=== PATIENT | female | born 1995 | race American Indian/Alaskan Native ===

== ENCOUNTER 2016-08-28 07:42 | Inpatient (IN) | payer OTHER, MEDICAID ==
[2016-08-28] MEDS ORDERED: CERVIDIL VG ONE (09:16)
[2016-08-28 09:42] LABS: Hematocrit 37.6 % (30.3-42.9); Mean Corpuscular HGB Conc 32 % (30-34); Mean Corpuscular Hemoglobin 27 pg (28-32); Mean Corpuscular Volume 83 fl (79-97); Platelet Count 136 K/mm3 (140-440); Red Blood Count 4.53 M/mm3 (3.65-5.03); Red Cell Distribution Width 17.2 % (13.2-15.2); White Blood Count 6.3 K/mm3 (4.5-11.0)
[2016-08-28] MEDS: LACTATED RINGERS 1,000 ML IV SCH ×3 (10:35→22:58)
--- NOTE | 2016-08-28 10:50 | History and Physical Report ---
History of Present Illness Date of examination: 08/28/16 Date of admission: 08/28/16 07:42 Chief complaint: Schedule induction of labor History of present illness: 21yo Fe , ARIANNE 08/25/2016 (LMP), 40 weeks 3days, B positve, Rubella Immume, GBS Negative presents for scheduled induction of labor for postdates. 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 Pt suffered with severe Ptyalism at the beginning of . 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 Anemia treated with Ferrous Sulfate. Received Boostrix 06/23/16. Past History Past Medical History: no pertinent history Past Surgical History: other (Oral Surgery) [employer] History: chlamydia (2013), gonorrhea (2013), herpes (2015, on prophylaxis), trichomonas (2013). denies: abnormal PAP smear, hepatitis B, hepatitis C, HIV, syphilis Family/Genetic History: diabetes, hypertension Social history: no significant social history, lives with family, full code. denies: smoking, alcohol abuse, prescription drug abuse, IV drug use - Obstetrical History Expected Date of Delivery: 08/25/16 Actual Gestation: 40 Week(s) 3 Day(s) : 1 Para: 0 Hx # Term Pregnancies: 0 Number of Pregnancies: 0 Spontaneous Abortions: 0 Induced : 0 Number of Living Children: 0 Medications and Allergies Allergies Allergy/AdvReac Type Severity Reaction Status Date / Time apple [Apple] Allergy Itching Verified 06/12/13 20:18 bee pollen [Bee Pollen] Allergy Unknown Verified 06/12/13 20:18 Home Medications Medication Instructions Recorded Confirmed Last Taken Type Acetamin/Codeine 120-12Mg/5 ml 5 ml PO TID PRN #30 ml 06/23/15 Unknown Rx [Tylenol/Codeine] Active Meds: Active Medications Ephedrine Sulfate (Ephedrine Sulfate) 10 mg IV Q2M PRN PRN Reason: Hypotension Stop: 08/28/16 15:00 Fentanyl (Sublimaze) 100 mcg IV Q2H PRN PRN Reason: Labor Pain Lactated Ringer's (Lactated Ringers) 1,000 mls @ 125 mls/hr IV DIRECT PALMER Last Admin: 08/28/16 10:35 Dose: 125 mls/hr Oxytocin/Sodium Chloride (Pitocin/Ns 20 Unit/1000ml Drip) 1,000 mls @ 125 mls/ hr IV DIRECT PALMER Mineral Oil (Mineral Oil) 30 ml PO QHS PRN PRN Reason: Constipation Naloxone HCl (Narcan 0.4 Mg/1 Ml) 0.1 mg IV Q2MIN PRN PRN Reason: Res Rate </= 8 or 02 SAT < 92% Ondansetron HCl (Zofran) 4 mg IV Q8H PRN PRN Reason: Nausea And Vomiting Promethazine HCl (Phenergan) 25 mg PO Q6H PRN PRN Reason: Nausea And Vomiting Terbutaline Sulfate (Brethine) 0.25 mg SUB-Q ONCE PRN PRN Reason: Hyperstimulation/Hypertonicity Stop: 08/28/16 11:01 Terbutaline Sulfate (Brethine) 0.25 mg IVP ONCE PRN PRN Reason: Hyperstimulation/Hypertonicity Stop: 08/28/16 11:01 Review of Systems Eyes: normal appearance Cardiovascular: no chest pain, no shortness of breath Respiratory: no shortness of breath Gastrointestinal: no nausea, no vomiting, no diarrhea, no constipation Genitourinary: normal appearance, no vaginal bleeding, no leakage of fluid, no genital sores, no contractions Integumentary: no rash, no sores, no lesions - Vital Signs Vital signs: Vital Signs Pulse Pulse Ox 72 99 08/28/16 08:20 08/28/16 08:20 Temp Pulse Resp BP Pulse Ox 97.6 F 68 14 110/61 98 08/28/16 08:21 08/28/16 10:25 08/28/16 08:21 08/28/16 08:27 08/28/16 10:25 - Physical Exam Breasts: Positive: normal Cardiovascular: Regular rate Lungs: Positive: Normal air movement Abdomen: Positive: normal appearance Genitourinary (Female): Positive: normal external genitalia, normal perenium Vulva: both: normal Vagina: Positive: normal moisture Uterus: Positive: enlarged (Gravid) Anus/Rectum: Positive: normal perianal skin Extremities: Positive: normal Deep Tendon Reflex Grade: Normal +2 - Obstetrical FHR: category 1 Uterine Contraction Monitor Mode: External Cervical Dilatation: 0 (Per admitting RN) Cervical Effacement Percentage: 50 station: -3 Uterine Contraction Pattern: Absent Uterine Tone Measurement Phase: Resting Results Result Diagrams: 08/28/16 08:40 Abnormal lab results 08/28/16 Range/Units 08:40 MCH 27 L (28-32) pg RDW 17.2 H (13.2-15.2) % Plt Count 136 L (140-440) K/mm3 All other labs normal. Assessment and Plan A: , Term IUP at 40w3d Scheduled IOL GBS Negative HSV2 IgG positive, on prophylaxis Category 1 tracing P: Admit to L&D Routine labor orders Cervidil induction
[2016-08-28] MEDS ORDERED: MINERAL OIL PO PRN (11:00)
[2016-08-28] MEDS ORDERED: BRETHINE IVP PRN (11:00)
[2016-08-28] MEDS ORDERED: NARCAN 0.4 MG/1 ML IV PRN (11:00)
[2016-08-28] MEDS ORDERED: PITOCin/NS 20 UNIT/1000ML DRIP 1,000 ML IV SCH (11:00)
[2016-08-28] MEDS ORDERED: SUBLIMAZE IV PRN (11:00)
[2016-08-28] MEDS ORDERED: BRETHINE SUB-Q PRN (11:00)
[2016-08-28] MEDS ORDERED: ZOFRAN IV PRN (11:00)
[2016-08-28] MEDS ORDERED: ePHEDrine SULFATE IV PRN ×2 (11:00→22:45)
[2016-08-28] MEDS ORDERED: PHENERGAN PO PRN (11:00)
[2016-08-28] MEDS ORDERED: ePHEDrine SULFATE ONE (22:18)
[2016-08-28] MEDS ORDERED: NARCAN 2 MG/2 ML IV PRN (22:45)
--- NOTE | 2016-08-28 22:45 | Anesthesia Consultation ---
Anesthesia Consult and Med Hx Date of service: 08/28/16 - Airway Anesthetic Teeth Evaluation: Good ROM Head & Neck: Adequate Mental/Hyoid Distance: Adequate Mallampati Class: Class II Intubation Access Assessment: Good - Pulmonary Exam CTA: Yes - Cardiac Exam Cardiac Exam: No Murmur - Pre-Operative Health Status ASA Pre-Surgery Classification: ASA2 Proposed Anesthetic Plan: Epidural - Pulmonary Hx Asthma: No COPD: No Hx Pneumonia: No - Cardiovascular System Hx Hypertension: No - Central Nervous System Hx Seizures: No Hx Psychiatric Problems: No - Endocrine Hx Renal Disease: No Hx End Stage Renal Disease: No Hx Hypothyroidism: No Hx Hyperthyroidism: No - Hematic Hx Anemia: No Hx Sickle Cell Disease: No - Other Systems Hx Alcohol Use: No
[2016-08-28] MEDS ORDERED: fentaNYL-BUPIV 2 MCG/ML-0.125% 100 ML EPIDURAL SCH (23:00)
[2016-08-28] MEDS: PITOCin/NS 30 UNIT/500ML 500 ML IV SCH (23:15)
[2016-08-29] MEDS: PITOCin/NS 30 UNIT/500ML 500 ML IV SCH (00:30)
--- NOTE | 2016-08-29 02:53 | Procedure Note ---
OB Delivery Note - Delivery Date of Delivery: 08/29/16 Surgeon: MARBIN REN Estimated blood loss: other (150cc) - Vaginal Delivery presentation: vertex Delivery position: OA Intrapartum events: none Delivery induction: cervidil Delivery augmentation: pitocin Delivery monitor: external FHT, external uterine Route of delivery: Delivery placenta: spontaneous Delivery cord: nuchal cord, 3 umbilical vessels Episiotomy: midline Delivery laceration: 1st degree (vaginal) Delivery repair: vicryl Anesthesia: epidural - A at 1 minute: 8 at 5 minutes: 9 Infant Gender: Male (3307gms)
[2016-08-29] MEDS ORDERED: LANSINOH TP PRN (02:54)
[2016-08-29] MEDS ORDERED: TYLENOL PO PRN (02:54)
[2016-08-29] MEDS ORDERED: PHENERGAN PR PRN (02:54)
[2016-08-29] MEDS ORDERED: PHENERGAN PO PRN (02:54)
[2016-08-29] MEDS ORDERED: ZOFRAN IV PRN (02:54)
[2016-08-29] MEDS ORDERED: MILK OF MAGNESIA PO PRN (02:54)
[2016-08-29] MEDS ORDERED: DULCOLAX PR PRN (02:54)
[2016-08-29] MEDS ORDERED: DERMOPLAST TP PRN (02:54)
[2016-08-29] MEDS ORDERED: TUCKS PAD TP PRN (02:54)
[2016-08-29] MEDS ORDERED: BENADRYL PO PRN (02:54)
[2016-08-29] MEDS ORDERED: SODIUM CHLORIDE FLUSH SYRINGE 10 ML IV NR (03:00)
[2016-08-29] MEDS ORDERED: PITOCin/NS 20 UNIT/1000ML DRIP 1,000 ML IV SCH (03:00)
[2016-08-29] MEDS ORDERED: SENOKOT S PO SCH (06:00)
[2016-08-29] MEDS: NORCO 5/325 PO PRN ×2 (08:40→20:22)
[2016-08-29] MEDS: FEOSOL PO SCH ×2 (09:23→22:00)
[2016-08-29] MEDS: PRENATAL VITAMIN PO SCH (09:23)
[2016-08-29] MEDS: COLACE PO SCH ×2 (09:23→22:00)
[2016-08-29] MEDS: MOTRIN PO SCH ×3 (13:30→23:38)
[2016-08-29 14:10] LABS: Hematocrit 36.4 % (30.3-42.9); Hemoglobin 11.9 gm/dl (10.1-14.3)
[2016-08-30] MEDS: MOTRIN PO SCH ×2 (05:50→11:53)
[2016-08-30] MEDS ORDERED: BOOSTRIX IM ONE (06:00)
[2016-08-30] MEDS ORDERED: M-M-R II VACCINE SUB-Q ONE (06:00)
[2016-08-30] MEDS: PRENATAL VITAMIN PO SCH (11:54)
[2016-08-30] MEDS: FEOSOL PO SCH (11:54)
[2016-08-30] MEDS ORDERED: DEPO-PROVERA (CONTRACEPTION) IM ONE (13:58)
--- NOTE | 2016-08-30 14:00 | Progress Note ---
Assessment and Plan A: PP Day #1 Stable P: Follow Routine Orders D/C Home today per patient request Depo Provera prior to discharge RTO in One Week for Male Circumcision RTO in 6 Weeks for Exam Subjective - Subjective Date of service: 08/30/16 Patient reports: appetite normal, voiding normally, pain well controlled, flatus , ambulating normally : doing well Objective - Vital Signs Latest vital signs: Vital Signs Temp Pulse Resp BP 08/30/16 08:42 98.4 F 70 18 106/60 08/29/16 23:50 98.3 F 68 20 107/57 08/29/16 16:15 98.4 F 84 20 97/58 Intake and Output 08/29/16 08/30/16 08/30/16 22:59 06:59 14:59 Intake Total 360 480 120 Balance 360 480 120 Intake: Oral 360 240 120 Intake, Free Water 240 Other: Total, Intake Amount 360 240 120 # Voids Void 1 1 - Exam Breasts: Present: normal Cardiovascular: Present: Regular rate Lungs: Present: Clear to auscultation, Normal air movement Abdomen: Present: normal appearance, soft, normal bowel sounds Uterus: Present: normal, firm, fundal height below umbilicus Extremities: Present: normal
--- NOTE | 2016-08-30 14:03 | Discharge Summary ---
Providers - Providers Date of Admission: 08/28/16 07:42 Date of discharge: 08/30/16 Attending physician: MARBIN HERNÁNDEZ MD Primary care physician: MARBIN HERNÁNDEZ MD Hospitalization Reason for admission: induction of labor Delivery: Episiotomy: none Laceration: 1st degree Other procedures: none complications: none Discharge diagnosis: IUP at term delivered [place] baby: male Condition at discharge: Good Disposition: DISCHARGED TO HOME OR SELFCARE Plan - Provider Discharge Summary Activity: routine, no sex for 6 weeks, no heavy lifting 4 weeks, no strenuous exercise Diet: routine Instructions: routine Additional instructions: [] Smoking cessation referral if applicable(refer to patient education folder for contact #) [] Refer to [facility] Booklet Call your doctor immediately for: * Fever > 100.5 * Heavy vaginal bleeding ( >1 pad per hour) * Severe persistent headache * Shortness of breath * Reddened, hot, painful area to leg or breast * Drainage or odor from incision. * Keep incision clean and dry at all times and follow doctor's instructions regarding bathing/showering - Follow up plan Follow up: SURENDRA ENGLE CNM [Advanced Practice Nurse] - 7 Days
[2016-08-30 17:08] VITALS: BP 110/66
== END 2016-08-30 16:30 | disposition home or self-care (01) | DRG 775 ==
LOC: LD 07:42 → OB 08-29 04:30
PROVIDERS: ADMIT Obstetrics & Gynecology; ATTEND Obstetrics & Gynecology
PROC: 10E0XZZ Delivery of Products of Conception, External Approach (ICD-10-PCS; principal; 2016-08-29)
PROC: 0W8NXZZ Division of Female Perineum, External Approach (ICD-10-PCS; 2016-08-29)
PROC: 3E0S3CZ (ICD-10-PCS; 2016-08-29)
PROC: 00HU33Z Insertion of Infusion Device into Spinal Canal, Percutaneous Approach (ICD-10-PCS; 2016-08-29)
PROC: 3E0P7GC Introduction of Other Therapeutic Substance into Female Reproductive, Via Natural or Artificial Opening (ICD-10-PCS; 2016-08-29)
PROC: 0WQNXZZ Repair Female Perineum, External Approach (ICD-10-PCS; 2016-08-29)
DX: O48.0 Post-term pregnancy (principal); O69.81X0 Labor and delivery complicated by cord around neck, without compression, not applicable or unspecified; O70.0 First degree perineal laceration during delivery; Z3A.40 40 weeks gestation of pregnancy; Z37.0 Single live birth; Z22.4 Carrier of infections with a predominantly sexual mode of transmission; Z86.19 Personal history of other infectious and parasitic diseases
CPT/HCPCS: 36415; 59200; 85014; 85018; 85027; 86850; 86900; 86901; 99211; G0463; J1050; J2590; J7120

== ENCOUNTER 2017-07-15 10:35 | Emergency (ER) | payer MEDICAID, OTHER ==
--- NOTE | 2017-07-15 12:31 | Emergency Department Report ---
Chief Complaint: Fever Stated Complaint: FEVER, AND MIGRAINE Time Seen by Provider: 07/15/17 11:57 - HPI History of Present Illness: Patient is a 16-cpsx-ajh-Mauritian female who is presenting with a fever. Patient is she is had a fever with generalized headache for the past 5 days patient states that there is headache in the frontal region as well as the base of the neck denies inability to move her neck. Patient has had some mild nausea. She denies sinus tenderness however she states she did have a nosebleed several days ago. Patient denies nausea vomiting at this time diarrhea cough sore throat - ROS Review of Systems: Review of systems negative except for those in the - Exam Vital Signs: Vital Signs 07/15/17 10:45 Temperature 101.9 F H Pulse Rate 108 H Respiratory 20 Rate Blood Pressure 118/74 O2 Sat by Pulse 99 Oximetry Physical Exam: Patient is able to sit up on her own and is able to look up and look down and move her neck with full range of motion AND otherwise patient has a normal exam MSE screening note: Focused history and physical exam performed. Due to findings the following was ordered: ED Disposition for MSE Condition: Stable Referrals: PRIMARY CARE [Primary Care Provider] - 3-5 Days
[2017-07-15] MEDS ORDERED: NACL 0.9% 1000 ML 1,000 ML IV ONE (12:35)
[2017-07-15] MEDS ORDERED: TYLENOL PO ONE (12:35)
[2017-07-15 13:26] LABS: Basophils % (Auto) 0.3 % (0.0-1.8); Hematocrit 44.4 % (30.3-42.9); Hemoglobin 14.5 gm/dl (10.1-14.3); Mean Corpuscular HGB Conc 33 % (30-34); Mean Corpuscular Hemoglobin 27 pg (28-32); Mean Corpuscular Volume 83 fl (79-97); Platelet Count 222 K/mm3 (140-440); Red Blood Count 5.38 M/mm3 (3.65-5.03); Red Cell Distribution Width 13.9 % (13.2-15.2); White Blood Count 10.8 K/mm3 (4.5-11.0)
--- NOTE | 2017-07-15 13:56 | Emergency Department Report ---
HPI - General Chief Complaint: Fever Time Seen by Provider: 07/15/17 11:57 - HPI HPI: Patient is a 33-pkuv-gwi-Palauan female who is presenting with a fever. Patient is she is had a fever with generalized headache x 5 days Patient states headache is localized to her frontal region and the base of the neck. Patient has no inability to move her neck. She denies any trauma to the head. She states she did have a nosebleed several days ago. Patient denies nausea/ vomiting /chest pain/shortness of breath/abdominal pain/ diarrhea/ cough /sore throat/vaginal discharge, dysuria ED Past Medical Hx - Past Medical History Hx Hypertension: No Hx Congestive Heart Failure: No Hx Diabetes: No Hx Deep Vein Thrombosis: No Hx Renal Disease: No Hx Sickle Cell Disease: No Hx Seizures: No Hx Asthma: No Hx COPD: No Hx HIV: No Additional medical history: eczema - Surgical History Past Surgical History?: No Hx Coronary Stent: No Hx Open Heart Surgery: No Hx Pacemaker: No Hx Internal Defibrillator: No Hx Cholecystectomy: No Hx Appendectomy: No Hx Breast Surgery: No - Social History Smoking Status: Never Smoker Substance Use Type: None - Medications Home Medications: Home Medications Medication Instructions Recorded Confirmed Last Taken Type Acetamin/Codeine 120-12Mg/5 ml 5 ml PO TID PRN #30 ml 06/23/15 Unknown Rx [Tylenol/Codeine] Ibuprofen [Motrin] 800 mg PO Q8HR PRN #30 tablet 07/15/17 Unknown Rx Levofloxacin [Levaquin TAB] 500 mg PO QDAY #7 tablet 07/15/17 Unknown Rx ED Review of Systems ROS: Stated complaint: FEVER, AND MIGRAINE Other details as noted in HPI Constitutional: denies: chills, fever Eyes: denies: eye pain, eye discharge, vision change ENT: denies: ear pain, throat pain Respiratory: denies: cough, shortness of breath, wheezing Cardiovascular: denies: chest pain, palpitations Endocrine: no symptoms reported Gastrointestinal: denies: abdominal pain, nausea, diarrhea Genitourinary: denies: urgency, dysuria, discharge Musculoskeletal: denies: back pain, joint swelling, arthralgia Skin: denies: rash, lesions Neurological: denies: headache, weakness, paresthesias Psychiatric: denies: anxiety, depression Hematological/Lymphatic: denies: easy bleeding, easy bruising Physical Exam - Physical Exam Vital Signs: Vital Signs 07/15/17 10:45 Temperature 101.9 F H Pulse Rate 108 H Respiratory 20 Rate Blood Pressure 118/74 O2 Sat by Pulse 99 Oximetry Physical Exam: GENERAL: Alert and oriented x3, no apparent distress, Normal Gait, atraumatic. HEAD: Head is normocephalic and a-traumatic. EYES: Extra ocular muscles are intact. Pupils are equal, round, and reactive to light and accommodation. EARS: symetrical, atraumatic, non tender, ear canal clear and moderate cerumen, tympanic membrance non inflamed. gross auditory nml bilaterally. NOSE: Nose symetrical, Nontender,Nares appeared normal. MOUTH:Mouth is well hydrated and without lesions. Tonsils nonerythematous or swollen, NECK: Supple. Non edematous, No lymphadenopathy or thyromegaly. LUNGS: Symetrical with respiration, No wheezing, no rales or crackles, CTAB. HEART: S1, S2 present, regular rate and rhythm without murmur, no rubs, no gallops. Non tender to palpation ABDOMEN: No organomegaly was noted,Positive bowel sounds, soft, and non- distended. . Nontender to palpation on all Quadrants, NO CVA tenderness. BACK: Full range of motion, no spinal tenderness, nontender to palpation. SKIN: Warm and dry, No lesions, No ulceration or induration present. ED Course Vital Signs 07/15/17 10:45 Temperature 101.9 F H Pulse Rate 108 H Respiratory 20 Rate Blood Pressure 118/74 O2 Sat by Pulse 99 Oximetry ED Medical Decision Making - Lab Data Result diagrams: 07/15/17 Unknown 07/15/17 Unknown Laboratory Last Values WBC 10.8 K/mm3 (4.5-11.0) 07/15/17 Unknown RBC 5.38 M/mm3 (3.65-5.03) H 07/15/17 Unknown Hgb 14.5 gm/dl (10.1-14.3) H 07/15/17 Unknown Hct 44.4 % (30.3-42.9) H 07/15/17 Unknown MCV 83 fl (79-97) 07/15/17 Unknown MCH 27 pg (28-32) L 07/15/17 Unknown MCHC 33 % (30-34) 07/15/17 Unknown RDW 13.9 % (13.2-15.2) 07/15/17 Unknown Plt Count 222 K/mm3 (140-440) 07/15/17 Unknown Lymph % (Auto) 12.7 % (13.4-35.0) L 07/15/17 Unknown [place] % (Auto) 8.7 % (0.0-7.3) H 07/15/17 Unknown Eos % (Auto) 0.0 % (0.0-4.3) 07/15/17 Unknown Baso % (Auto) 0.3 % (0.0-1.8) 07/15/17 Unknown Lymph # 1.4 K/mm3 (1.2-5.4) 07/15/17 Unknown [place] # 0.9 K/mm3 (0.0-0.8) H 07/15/17 Unknown Eos # 0.0 K/mm3 (0.0-0.4) 07/15/17 Unknown Baso # 0.0 K/mm3 (0.0-0.1) 07/15/17 Unknown Seg Neutrophils % 78.3 % (40.0-70.0) H 07/15/17 Unknown Seg Neutrophils # 8.4 K/mm3 (1.8-7.7) H 07/15/17 Unknown HCG, Qual Negative (Negative) 07/15/17 Unknown Monoscreen Negative (Negative) 07/15/17 Unknown Laboratory Last Values WBC 10.8 K/mm3 (4.5-11.0) 07/15/17 Unknown RBC 5.38 M/mm3 (3.65-5.03) H 07/15/17 Unknown Hgb 14.5 gm/dl (10.1-14.3) H 07/15/17 Unknown Hct 44.4 % (30.3-42.9) H 07/15/17 Unknown MCV 83 fl (79-97) 07/15/17 Unknown MCH 27 pg (28-32) L 07/15/17 Unknown MCHC 33 % (30-34) 07/15/17 Unknown RDW 13.9 % (13.2-15.2) 07/15/17 Unknown Plt Count 222 K/mm3 (140-440) 07/15/17 Unknown Lymph % (Auto) 12.7 % (13.4-35.0) L 07/15/17 Unknown [place] % (Auto) 8.7 % (0.0-7.3) H 07/15/17 Unknown Eos % (Auto) 0.0 % (0.0-4.3) 07/15/17 Unknown Baso % (Auto) 0.3 % (0.0-1.8) 07/15/17 Unknown Lymph # 1.4 K/mm3 (1.2-5.4) 07/15/17 Unknown [place] # 0.9 K/mm3 (0.0-0.8) H 07/15/17 Unknown Eos # 0.0 K/mm3 (0.0-0.4) 07/15/17 Unknown Baso # 0.0 K/mm3 (0.0-0.1) 07/15/17 Unknown Seg Neutrophils % 78.3 % (40.0-70.0) H 07/15/17 Unknown Seg Neutrophils # 8.4 K/mm3 (1.8-7.7) H 07/15/17 Unknown Sodium 132 mmol/L (137-145) L 07/15/17 Unknown Potassium 3.4 mmol/L (3.6-5.0) L 07/15/17 Unknown Chloride 87.5 mmol/L (98-107) L 07/15/17 Unknown Carbon Dioxide 23 mmol/L (22-30) 07/15/17 Unknown Anion Gap 25 mmol/L 07/15/17 Unknown BUN 5 mg/dL (7-17) L 07/15/17 Unknown Creatinine 0.7 mg/dL (0.7-1.2) 07/15/17 Unknown Estimated GFR > 60 ml/min 07/15/17 Unknown BUN/Creatinine Ratio 7 % 07/15/17 Unknown Glucose 94 mg/dL (65-100) 07/15/17 Unknown Lactic Acid 1.40 mmol/L (0.7-2.0) 07/15/17 Unknown Calcium 9.2 mg/dL (8.4-10.2) 07/15/17 Unknown Total Bilirubin 0.50 mg/dL (0.1-1.2) 07/15/17 Unknown AST 33 units/L (5-40) 07/15/17 Unknown ALT 23 units/L (7-56) 07/15/17 Unknown Alkaline Phosphatase 85 units/L (35-129) 07/15/17 Unknown Total Protein 9.0 g/dL (6.3-8.2) H 07/15/17 Unknown Albumin 4.6 g/dL (3.9-5) 07/15/17 Unknown Albumin/Globulin Ratio 1.0 % 07/15/17 Unknown HCG, Qual Negative (Negative) 07/15/17 Unknown Urine Color Red (Yellow) 07/15/17 14:05 Urine Turbidity Cloudy (Clear) 07/15/17 14:05 Urine pH 6.0 (5.0-7.0) 07/15/17 14:05 Ur Specific [place] 1.020 (1.003-1.030) 07/15/17 14:05 Urine Protein 100 mg/dl mg/dL (Negative) 07/15/17 14:05 Urine Glucose (UA) Neg mg/dL (Negative) 07/15/17 14:05 Urine Ketones 20 mg/dL (Negative) 07/15/17 14:05 Urine Blood Lg (Negative) 07/15/17 14:05 Urine Nitrite Pos (Negative) 07/15/17 14:05 Urine Bilirubin Neg (Negative) 07/15/17 14:05 Urine Urobilinogen 4.0 mg/dL (<2.0) 07/15/17 14:05 Ur Leukocyte Esterase Sm (Negative) 07/15/17 14:05 Urine WBC (Auto) > 182.0 /HPF (0.0-6.0) H 07/15/17 14:05 Urine RBC (Auto) > 182.0 /HPF (0.0-6.0) 07/15/17 14:05 U Epithel Cells (Auto) 25.0 /HPF (0-13.0) H 07/15/17 14:05 Urine Bacteria (Auto) 2+ /HPF (Negative) 07/15/17 14:05 Monoscreen Negative (Negative) 07/15/17 Unknown - Medical Decision Making 22-year-old female presents with urinary tract infection ED course: Patient received a liter of fluids, Tylenol for fever. She received a dose of Levaquin in ED prior to discharge CBC, CMP, test, monoscreen ordered. Urinalysis pending CBC shows iron deficiency anemia, test negative monoscreen negative. Discussed lab findings with the patient. urinalysis positive for elevated white count, elevated 20 cells, 2+ bacteria, positive nitrite. Discussed the patient she will be going him on Levaquin for a urinary tract infection. Vital signs are normalized patient is in no acute distress. - Differential Diagnosis 1. Viral syndrome 2. Urinary tract infection/pyelonephritis Critical care attestation.: If time is entered above; I have spent that time in minutes in the direct care of this critically ill patient, excluding procedure time. ED Disposition Clinical Impression: UTI (urinary tract infection) Qualifiers: Urinary tract infection type: acute cystitis Hematuria presence: with hematuria Qualified Code(s): N30.01 - Acute cystitis with hematuria Disposition: TO HOME OR SELFCARE Is pt being admited?: No Does the pt Need Aspirin: No Condition: Stable Instructions: Urinary Tract Infection in Women (ED), Acute Pyelonephritis (ED) Additional Instructions: Make sure to follow up with the primary care physician as discussed. Take all your medications as you've been prescribed. If you have any worsening symptoms or develop new symptoms please return to ED immediately. Prescriptions: Ibuprofen [Motrin] 800 mg PO Q8HR PRN #30 tablet PRN Reason: Pain Levofloxacin [Levaquin TAB] 500 mg PO QDAY #7 tablet Referrals: PRIMARY CARE, [Primary Care Provider] - 3-5 Days [facility] [place] [Outside] - 3-5 Days [facility] [Outside] - 3-5 Days [facility] [Outside] - 3-5 Days Forms: Accompanied Note, Work/School Release Form(ED) Time of Disposition: 15:46
[2017-07-15 14:47] LABS: Bacteria,Urine 2+ /HPF (Negative); Bilirubin,Urine NEG (Negative); Blood,Urine LG (Negative); Ketones,Urine 20 mg/dL (Negative); Leukocyte Esterase,Urine SM (Negative); Nitrite,Urine POS (Negative)
[2017-07-15 15:03] LABS: RBC,Urine > 182.0 /HPF (0.0-6.0); WBC,Urine > 182.0 /HPF (0.0-6.0)
[2017-07-15 15:20] LABS: Alanine Aminotransferase 23 units/L (7-56); Albumin 4.6 g/dL (3.9-5); Alkaline Phosphatase 85 units/L (35-129); Anion Gap 25 mmol/L; BUN/Creatinine Ratio 7; Blood Urea Nitrogen 5 mg/dL (7-17); Calcium 9.2 mg/dL (8.4-10.2); Carbon Dioxide 23 mmol/L (22-30); Chloride 87.5 mmol/L (98-107); Glucose 94 mg/dL (65-100); Potassium 3.4 mmol/L (3.6-5.0); Sodium 132 mmol/L (137-145)
[2017-07-15] MEDS ORDERED: ROCEPHIN 250 MG in NACL 0.9% 50 ML IV ONE (15:42)
[2017-07-15] MEDS ORDERED: LEVAQUIN PO ONE (15:48)
[2017-07-15] MEDS ORDERED: cefTRIAXone 0.25 GM in NACL 0.9% 20 ML IV ONE (16:00)
[2017-07-15 16:09] VITALS: BP 101/68
== END 2017-07-15 16:08 | disposition home or self-care (01) ==
LOC: ED 10:35
DX: N39.0 Urinary tract infection, site not specified (principal)
CPT/HCPCS: 36415; 80053; 81001; 82140; 84703; 85025; 86308; 87040; 96360; 99283; J0696; J7030